=== PATIENT | female | born 1995 ===

== ENCOUNTER 2019-06-18 11:22 | Inpatient (IN) | payer OTHER ==
[~2019-06-18] VITALS: Ht 149 cm; Wt 57.9 kg
[2019-06-18] VITALS (8 sets, daily range): BP systolic 115–142; BP diastolic 74–97
--- NOTE | 2019-06-18 11:30 | NUR ---
Arrived to unit ambulates self accompanied by s.o. Here for monitoring and possible induction of labor. Wt obtained and to room 318. gowned and urine sample obtained. To bed and monitors on. pLan of care reviewed with pt and s.o. Language barrier noted, s.o. speaking and understanding some tristanian.
--- NOTE | 2019-06-18 12:00 | NUR ---
Language line obtained and discussing plan of care with pt and rn completing assessment.
[2019-06-18 12:46] LABS: HEMOGLOBIN 12.8 G/DL (11.5-16.0); MEAN PLATELET VOLUME 11.8 FL (7.4-10.4); RED CELL DISTRIBUTION WIDTH 20.3 % (10.0-14.5); WHITE BLOOD COUNT 7.3 10^3/uL (4.3-11.0)
[2019-06-18 12:51] LABS: ALBUMIN 3.1 GM/DL (3.2-4.5); CHLORIDE 105 MMOL/L (98-107); POTASSIUM 4.4 MMOL/L (3.6-5.0); SODIUM 134 MMOL/L (135-145)
[2019-06-18 12:52] LABS: CALCIUM 8.5 MG/DL (8.5-10.1)
[2019-06-18 12:53] LABS: GLUCOSE 88 MG/DL (70-105)
[2019-06-18 12:54] LABS: TOTAL PROTEIN 6.6 GM/DL (6.4-8.2)
[2019-06-18 12:55] LABS: CARBON DIOXIDE 18 MMOL/L (21-32)
[2019-06-18 12:56] LABS: BILIRUBIN,TOTAL 0.2 MG/DL (0.1-1.0)
[2019-06-18 12:57] LABS: ALKALINE PHOSPHATASE 296 U/L (40-136); CREATININE SERUM 0.63 MG/DL (0.60-1.30); GFR ESTIMATED > 60
[2019-06-18 12:58] LABS: BUN/CREATININE RATIO 16
[2019-06-18 13:00] LABS: ALANINE AMINOTRANSFERASE 23 U/L (0-55); URIC ACID 7.2 MG/DL (2.6-7.2)
--- NOTE | 2019-06-18 13:37 | NUR ---
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 will review plan of care with pt and s.o.
--- NOTE | 2019-06-18 14:02 | NUR ---
plan of care reviewed with pt and s.o. via language line. sandwich tray given to s.o. and pt to receive sandwich tray
[2019-06-18] MEDS ORDERED: CATHETER FLUSH 10 ML SYR IV PRN (16:45)
--- OUTSIDE RECORDS SUMMARY | 2019-06-18 17:10 | XMS REPORT | Continuity of Care Document ---
Author Organization Unknown Address Unknown Phone Unavailable Allergies There is no data. Medications There is no data. Problems There is no data. Procedures There is no data. Results Test Result Range TSH - 05/14/19 12:43 TSH 2.09 mIU/L NRG RUBELLA IMMUNE STATUS - 05/14/19 12:43 RUBELLA ANTIBODY (IGG) 8.33 index NRG CULTURE, URINE - 05/14/19 12:43 CULTURE, URINE, ROUTINE SEE NOTE NRG SUREPATH PAP RFX HPV mRNA E6/E7 - 12:47 CLINICAL INFORMATION: NRG LMP: NONE GIVEN NRG PREV. PAP: NONE GIVEN NRG PREV. BX: NONE GIVEN NRG SOURCE: Cervix NRG STATEMENT OF ADEQUACY: NRG INTERPRETATION/RESULT: NRG SECURITIES ADVISER: NRG GENERAL CATEGORIZATION: NRG COMMENT: NRG PATHOLOGIST: NRG COMMENT NRG Automated blood complete blood count (he mogram) panel - 06/18/19 11:00 Blood leukocytes automated count (number/volume) 7.3 10*3/uL 4.3-11.0 Blood erythrocytes automated count (number/volume) 4.49 10*6/uL 4.35-5.85 Venous blood hemoglobin measurement (mass/volume) 12.8 g/dL 11.5-16.0 Blood hematocrit (volume fraction) 39 % 35-52 Automated erythrocyte mean corpuscular volume 86 [ foz_us] 80-99 Automated erythrocyte mean corpuscular h emoglobin (mass per erythrocyte) 29 pg 25-34 Automated erythrocyte mean corpuscular h emoglobin concentration measurement (mass/volume) 33 g/dL 32-36 Automated erythrocyte distribution width ratio 20. 3 % 10.0- 14.5 Automated blood platelet count (count/volume) 223 10*3/uL 130-400 Automated blood platelet mean volume measurement 11.8 [foz_us] 7.4-10.4 Comprehensive metabolic panel - 06/18/19 11:00 Serum or plasma sodium measurement (moles/volume) 134 mmol/L 135-145 Serum or plasma potassium measurement (moles/volume) 4.4 mmol/L 3.6-5.0 Serum or plasma chloride measurement (moles/volume) 105 mmol/L 98-107 Carbon dioxide 18 mmol/L 21-32 Serum or plasma anion gap determination (moles/volume) 11 mmol/L 5-14 Serum or plasma urea nitrogen measurement (mass/volume ) 10 mg/dL 7-18 Serum or plasma creatinine measurement (mass/volume) 0.63 mg/dL 0.60-1.30 Serum or plasma urea nitrogen/creatinine mass ratio 16 NRG Serum or plasma creatinine measurement w ith calculation of estimated glomerular filtration rate > NRG Serum or plasma glucose measurement (mass/volume) 88 mg/dL 70-105 Serum or plasma calcium measurement (mass/volume) 8.5 mg/dL 8.5-10.1 Serum or plasma total bilirubin measurement (mass/volu me) 0.2 mg/dL 0.1-1.0 Serum or plasma alkaline phosphatase kari surement (enzymatic activity/volume) 296 U/L 40-136 Serum or plasma aspartate aminotransfera se measurement (enzymatic activity/volume) 31 U/L 5-34 Serum or plasma alanine aminotransferase measurement (enzymatic activity/volume) 23 U/L 0-55 Serum or plasma protein measurement (mass/volume) 6.6 g/dL 6.4-8.2 Serum or plasma albumin measurement (mass/volume) 3.1 g/dL 3.2-4.5 CALCIUM CORRECTED 9.2 mg/dL 8.5-10.1 Serum or plasma uric acid measurement (m ass/volume) - 06/18/19 11:00 Serum or plasma uric acid measurement (mass/volume) 7.2 mg/dL 2.6-7.2 Urine protein/creatinine mass ratio - 11:00 Urine protein measurement (mass/volume) 392 mg/dL 6-12 Urine creatinine measurement (mass/volume) 42 mg/d L 30-125 Urine protein/creatinine mass ratio 9.33 NRG Serum ragweed IgE antibody assay - 06/17 11:00 Serum ragweed IgE antibody assay 191 U/L 125-220 Encounters ACCT No. Visit Date/Time Discharge Status Pt. Type Provider Facility Loc./Unit Complaint [id number] 06/11/2019 10:10:00 06/11/2019 23:59: 59 [facility] Outpatient ASHLEY DAVIS, BREE Lee [facility], [place] [id number] 05/14/2019 10:20:00 Document Registration [id number] 06/18/2019 12:48:00 Document Registration
[2019-06-19] VITALS (48 sets, daily range): BP systolic 108–184; BP diastolic 72–102
[2019-06-19 05:38] LABS: BASOPHILS % (AUTO) 0 % (0-10); EOSINOPHILS # (AUTO) 0.1 10^3/uL (0.0-0.3); EOSINOPHILS % (AUTO) 2 % (0-10); HEMATOCRIT 38 % (35-52); HEMOGLOBIN 12.8 G/DL (11.5-16.0); LYMPHOCYTES # (AUTO) 2.8 X 10^3 (1.0-4.0); LYMPHOCYTES % (AUTO) 38 % (12-44); MEAN CORPUSCULAR HEMOGLOBIN 29 PG (25-34); MEAN CORPUSCULAR HGB CONC 33 G/DL (32-36); MEAN CORPUSCULAR VOLUME 87 FL (80-99); MONOCYTES # (AUTO) 0.7 X 10^3 (0.0-1.0); MONOCYTES % (AUTO) 9 % (0-12); NEUTROPHILS # (AUTO) 3.9 X 10^3 (1.8-7.8); NEUTROPHILS % (AUTO) 52 % (42-75); PLATELET COUNT 213 10^3/uL (130-400); RED CELL DISTRIBUTION WIDTH 20.4 % (10.0-14.5); WHITE BLOOD COUNT 7.6 10^3/uL (4.3-11.0)
[2019-06-19 05:50] LABS: ALBUMIN 2.8 GM/DL (3.2-4.5); CHLORIDE 105 MMOL/L (98-107); SODIUM 134 MMOL/L (135-145)
[2019-06-19 05:51] LABS: CALCIUM 7.9 MG/DL (8.5-10.1)
[2019-06-19 05:52] LABS: GLUCOSE 80 MG/DL (70-105); TOTAL PROTEIN 6.3 GM/DL (6.4-8.2)
[2019-06-19 05:53] LABS: CARBON DIOXIDE 18 MMOL/L (21-32)
[2019-06-19 06:05] LABS: ALANINE AMINOTRANSFERASE 20 U/L (0-55); ALKALINE PHOSPHATASE 272 U/L (40-136); BILIRUBIN,TOTAL 0.2 MG/DL (0.1-1.0); BUN/CREATININE RATIO 22; CREATININE SERUM 0.63 MG/DL (0.60-1.30); GFR ESTIMATED > 60
[2019-06-19 06:12] LABS: URIC ACID 7.8 MG/DL (2.6-7.2)
--- NOTE | 2019-06-19 08:20 | NUR ---
Sono tech to bedside for BPP.
--- NOTE | 2019-06-19 08:55 | NUR ---
Dr Baldwin called and reviewed lab results already seen by and tiffany report of 10/10 BPP along with recent bp's obtained. new orders for induction received. Will review plan of care with pt s.o.
[2019-06-19] MEDS ORDERED: D5 LR IV SOLUTION 1,000 ML IV SCH (08:58)
[2019-06-19] MEDS ORDERED: AMPICILLIN FOR IV USE 2,000 MG in WATER (STERILE) FOR INJECTION 14.8 ML IV SCH (08:58)
[2019-06-19] MEDS ORDERED: OXYTOCIN PRE-MIX DRIP 500 ML IV SCH ×2 (08:58→17:45)
[2019-06-19] MEDS ORDERED: CALCIUM GLUC. 10% 4.65 MEQ/10 ML VIAL IV PRN (09:00)
[2019-06-19] MEDS ORDERED: MAGNESIUM 4 GM/100 ML IVPB 100 ML IV ONE (09:00)
--- NOTE | 2019-06-19 09:12 | History & Physical-OB ---
OB - Chief Complaint & HPI Date/Time Date of Admission: Date of Admission: Jun 18, 2019 at 13:30 Date seen by a Provider: Jun 18, 2019 Time Seen by a Provider: 10:30 Chief Complaint/History OB-Reason for Admission/Chief: Obstetrical Complication Hx : 2 Hx Para: 1 Expected Date of Delivery: July 12, 2019 Gestational Age in Weeks: 36 Gestational Age in Days: 5 Indication for induction: medical complication (preeclampsia with severe features) History of Labs O+, antibody neg, RI. HIV/HepB/RPR NR. Chlamydia pos, treated 05/27. GC neg. 1 hour glucola neg. GBS pending. Allergies and Home Medications Allergies Coded Allergies: pork derived (porcine) (Verified Allergy, Unknown, 06/18/19) Patient Home Medication List Home Medication List Reviewed: Yes OB - History Hx of Present Care: Yes (late care, first visit at 31 weeks) Ultrasounds: Other (normal US findings, first US at 31 weeks) Obstetrical Complications: Pre-eclampsia Information Maternal Gestational Diabetes: No Hemorrhage: No Obstetrical History Hx : 2 Hx Para: 1 Hx # Term Pregnancies: 1 Hx # Pregnancies: 0 Number of Living Children: 1 Hx Termination: No Hx Multiple Gestation: No Hx Ectopic : No Hx Stillbirth: No Hx Complication: No Hx Induced Hypertens: No Hx Maternal Gestational Diabet: No Hx Hemorrhage: No Delivery History Hx Dystocia: No Hx Forceps Assisted Delivery: No Hx Vacuum Extraction Assisted: No Hx Placenta Abnormality: No Hx Distress: No Hx Large For Gestational Age I: No Hx Small for Gestational Age I: No Hx Section: No Hx Vaginal Delivery Post C-Sec: No Hx Blood Disorders: No Adverse Rxn to Tranfusion: No Patient Past Medical History PMHx: Denies PSurgHx: Denies Social History/Family History Alcohol Use: Denies Use Recreational Drug Use: No Smoking Cessation: Never smoker Immunizations Tetanus Booster (TDap): Less than 5yrs (05/14/2019) Rubella: immune RPR/VDRL: Negative GBS Status: Unknown HBsAG: Negative OB - Admission Exam Physical Exam Vitals: Vital Signs 06/18/19 06/18/19 06/19/19 06/19/19 16:30 19:20 06:30 07:00 Temp 36.7 Pulse 59 Resp 18 B/P (MAP) 133/78 (96) Pulse Ox 98 O2 Delivery Room Air HEENT: NCAT Abdomen: Gravid Extremities: Normal Reflexes: Hyperreflexia Present (mild per nursing) Cervical Dilatation: 4cm Effacement: 50% Station: -3 Membranes: Intact Contractions on Admission: >10 Minutes Apart Stone Scoring Tool (Modified) Dilation (cm): 3-4cm (2) Effacement (%): 51-79% (2) Descent/Station: -3 (0) Cervix Consistency: Soft (2) Cervix Position: Anterior (2) Add 1 point for: Each previous vaginal delivery (1) (1) Stone Score: 9 Labs Laboratory Tests Test 06/18/19 11:00 06/19/19 05:26 Range/Units White Blood Count 7.3 7.6 4.3-11.0 10^3/uL Red Blood Count 4.49 4.44 4.35-5.85 10^6/uL Hemoglobin 12.8 12.8 11.5-16.0 G/DL Hematocrit 39 38 35-52 % Mean Corpuscular Volume 86 87 80-99 FL Mean Corpuscular Hemoglobin 29 29 25-34 PG Mean Corpuscular Hemoglobin Concent 33 33 32-36 G/DL Red Cell Distribution Width 20.3 H 20.4 H 10.0-14.5 % Platelet Count 223 213 130-400 10^3/uL Mean Platelet Volume 11.8 H 12.0 H 7.4-10.4 FL Urine Protein 392 H 6-12 MG/DL Urine Creatinine 42 30-125 MG/DL Urine Protein/Creatinine Ratio 9.33 Sodium Level 134 L 134 L 135-145 MMOL/L Potassium Level 4.4 4.0 3.6-5.0 MMOL/L Chloride Level 105 105 98-107 MMOL/L Carbon Dioxide Level 18 L 18 L 21-32 MMOL/L Anion Gap 11 11 5-14 MMOL/L Blood Urea Nitrogen 10 14 7-18 MG/DL Creatinine 0.63 0.63 0.60-1.30 MG/DL Estimat Glomerular Filtration Rate > 60 > 60 BUN/Creatinine Ratio 16 22 Glucose Level 88 80 70-105 MG/DL Uric Acid 7.2 7.8 H 2.6-7.2 MG/DL Calcium Level 8.5 7.9 L 8.5-10.1 MG/DL Corrected Calcium 9.2 8.9 8.5-10.1 MG/DL Total Bilirubin 0.2 0.2 0.1-1.0 MG/DL Aspartate Amino Transf (AST/SGOT) 31 27 5-34 U/L Alanine Aminotransferase (ALT/SGPT) 23 20 0-55 U/L Alkaline Phosphatase 296 H 272 H 40-136 U/L Lactate Dehydrogenase 191 170 125-220 U/L Total Protein 6.6 6.3 L 6.4-8.2 GM/DL Albumin 3.1 L 2.8 L 3.2-4.5 GM/DL Neutrophils (%) (Auto) 52 42-75 % Lymphocytes (%) (Auto) 38 12-44 % Monocytes (%) (Auto) 9 0-12 % Eosinophils (%) (Auto) 2 0-10 % Basophils (%) (Auto) 0 0-10 % Neutrophils # (Auto) 3.9 1.8-7.8 X 10^3 Lymphocytes # (Auto) 2.8 1.0-4.0 X 10^3 Monocytes # (Auto) 0.7 0.0-1.0 X 10^3 Eosinophils # (Auto) 0.1 0.0-0.3 10^3/uL Basophils # (Auto) 0.0 0.0-0.1 10^3/uL OB - Assessment/Plan/Diagnosis Assessment Assessment: induction of labor, other (preeclampsia with severe features) Admission Dx Preeclampsia with severe features 36 weeks gestation GBS unknown Admission Status: Inpatient Order (span 2 midnights) Reason for Inpatient Admission: Induction, labor, delivery and course Plan Plan: Induction Induction Method: per Pitocin Protocol Other Plan Magnesium for preeclampsia with severe features (BP > 160, pr/cr over 9, remainder of labs including platelets okay with the exception of slightly elevated uric acid today) Labetalol as needed for BP > 160/110 Ampicillin for GBS unknown BREE RAMIREZ MD Jun 19, 2019 09:12
--- NOTE | 2019-06-19 09:13 | Diagnostic Imaging Report ---
EXAM: US BIOPHYSICAL PROFILE [id number] INDICATION: Preeclampsia. COMPARISON: None. FINDINGS: Limited obstetric ultrasound demonstrates a single intrauterine with a heart rate 127 BPM. Cephalic presentation. Posterior grade 2 placenta. XAVI 8.3 cm. Biophysical profile score equals 8. IMPRESSION: Biophysical profile score 8/8. Dictated by: Dictated on workstation # [id number]
[2019-06-19] MEDS ORDERED: PREN-142 PO (09:29)
[2019-06-19] MEDS: MAGNESIUM SULFATE DRIP 500 ML IV SCH ×2 (10:23→20:19)
[2019-06-19] MEDS ORDERED: AMPICILLIN FOR IV USE 1,000 MG in WATER (STERILE) FOR INJECTION 7.4 ML IV SCH (13:00)
--- NOTE | 2019-06-19 16:20 | NUR ---
blanka patino called dr garcia with updated pt report. sve , bloody show, pt hurting with US. Dr garcia coming for delivery.
--- NOTE | 2019-06-19 16:20 | NUR ---
Report to Melly Longoria RN
--- NOTE | 2019-06-19 16:29 | NUR ---
dr garcia called again, pt starting to push with GLENDY. Tanvir RN remaining at bedside. Clementina RN in nursery notified to come for delivery.
[2019-06-19] MEDS ORDERED: MISOPROSTOL 200 MCG (CYTOTEC) TABLET PR ONE (16:45)
--- NOTE | 2019-06-19 17:00 | NUR ---
1620: Dr Baldwin called to come for delivery, pt 7cm. Nursery notified as well. 1628: Dr Baldwin called again, pt pushing with UC, nursery RN notified to come for delivery. This RN remains at bedside with pt. 1631: Emergency light pulled for staff assist by this RN. Pt continues to push with melanie PIKE. Rossi, RN; Monie, RN; Clementina, RN at bedside with this RN. 1632: Head delivers, quickly following body. 36.5wk female bulb suctioned by this RN. dried with towels and place on mothers abdomen where Clementina RN continues to assess and stimulate . vigorous, good cry, tone, color. 1633: Cord clamped and cut by HOA Lomax. 1634: Pt has large gushes of blood with steady trickle. 1635: Intact placenta is delivered by this RN. Fundus firm, midline. Large gushes of blood continue. Pitocin is ran wide open. 1637: This RN continues to assess and rub fundus. bleeding slows. Dr Baldwin at bedside at this time. Dr Baldwin updated on situation. Pt setup for evaluation from Dr Baldwin. Lithotomy position using stirrups. 1641: 800mcg of cytotec admin rectally by Dr Baldwin. No lacerations noted by . 1645: Pericare done by this RN, pt linens changed, repositioned in bed. 1700: Recovery period begins at this time.
--- NOTE | 2019-06-19 17:01 | OB Labor & Delivery Record ---
Vag Delivery Note Vag Delivery Note Date of Delivery: 06/19/19 Preoperative Diagnosis: Elliot Yeung is a 24 /Para 2 / 1,Gestational Age (wks)36 with 5 days with preeclampsia with severe features Postoperative Diagnosis: Same Anesthesia: None Delivery Type: Precipitous Findings: Viable female , apgars 9/9, weight 4#14 Lacerations: none Intact placenta with 3 vessel cord. No nuchal cord, body cord or shoulder dystocia Cytotec 800 mcg placed for persistent bleeding Estimated Blood Loss: 400 ml Complications: None Condition: Stable Description of Procedure: The patient is a 24 year old female who presented with preeclampsia with severe features. She was admitted and informed consent was obtained. Her labor course was remarkable for rapid second stage. Nurse called me at 1624 to notify that patient was 7, I arrived at approximately 1636 and infant and placenta had already delivered precipitously prior to my arrival. The cord was doubly clamped and cut by nursing staff and the infant was handed off to the pediatric staff. ~ Vigorous fundal massage was performed and the fundus was found to be firm. IV oxytocin was given. When I arrived, nursing noted firm fundus but occasional gushes of blood persisting. Cytotec [address] aced rectally and bleeding stopped. Examination of the vagina and perineum revealed no laceration. Following the delivery, sponge, instrument and needle counts were correct. Mom and baby were both in stable condition in the labor suite. Vitals - Labs Vital Signs - I&O Vital Signs Date Time Temp Pulse Resp B/P (MAP) Pulse Ox O2 Delivery O2 Flow Rate FiO2 06/19/19 16:15 83 18 152/102 (119) 99 06/19/19 16:00 78 18 157/97 (117) 99 06/19/19 15:45 84 18 133/92 (106) 98 06/19/19 15:30 37.0 86 18 125/75 (92) 98 06/19/19 15:15 86 18 128/78 (95) 98 06/19/19 14:45 84 18 137/91 (106) 98 06/19/19 14:30 76 18 143/99 (114) 99 06/19/19 14:15 76 18 143/99 (114) 99 06/19/19 14:00 83 153/92 (112) 99 06/19/19 13:45 91 16 152/97 (115) 99 06/19/19 13:30 67 16 159/98 (118) 98 06/19/19 13:15 67 16 155/93 (113) 98 06/19/19 13:00 73 16 148/94 (112) 100 06/19/19 12:45 36.1 71 16 129/89 (102) 99 06/19/19 12:30 81 16 130/88 (102) 98 06/19/19 12:15 78 16 122/82 (95) 98 06/19/19 12:00 65 16 121/84 (96) 98 06/19/19 11:45 73 16 157/96 (116) 99 06/19/19 11:30 72 16 137/72 (93) 98 06/19/19 11:15 67 16 140/87 (104) 98 06/19/19 11:00 66 16 159/90 (113) 99 06/19/19 10:45 65 16 118/81 (93) 98 06/19/19 10:30 74 16 114/80 (91) 98 06/19/19 10:15 36.5 89 16 113/72 (86) 98 06/19/19 10:00 86 16 111/75 (87) 98 06/19/19 09:45 37.1 88 16 108/75 (86) 06/19/19 08:30 37.1 66 16 166/93 (117) 06/19/19 08:00 36.7 06/19/19 07:30 58 16 152/81 (104) 06/19/19 07:00 36.7 06/19/19 06:30 59 133/78 (96) 06/19/19 05:30 58 152/76 (101) 06/19/19 04:53 60 123/78 (93) 06/19/19 04:21 66 126/73 (90) 06/19/19 04:15 36.7 56 184/90 (121) 06/18/19 19:20 36.8 71 18 130/83 (99) 98 Labs Laboratory Tests 06/19/19 05:26: White Blood Count 7.6, Red Blood Count 4.44, Hemoglobin 12.8, Hematocrit 38, Mean Corpuscular Volume 87, Mean Corpuscular Hemoglobin 29, Mean Corpuscular Hemoglobin Concent 33, Red Cell Distribution Width 20.4H, Platelet Count 213, Mean Platelet Volume 12.0H, Neutrophils (%) (Auto) 52, Lymphocytes (%) (Auto) 38, Monocytes (%) (Auto) 9, Eosinophils (%) (Auto) 2, Basophils (%) (Auto) 0, Neutrophils # (Auto) 3.9, Lymphocytes # (Auto) 2.8, Monocytes # (Auto) 0.7, Eosinophils # (Auto) 0.1, Basophils # (Auto) 0.0, Sodium Level 134L, Potassium Level 4.0, Chloride Level 105, Carbon Dioxide Level 18L, Anion Gap 11, Blood Urea Nitrogen 14, Creatinine 0.63, Estimat Glomerular Filtration Rate > 60, BUN/Creatinine Ratio 22, Glucose Level 80, Uric Acid 7.8H, Calcium Level 7.9L, Corrected Calcium 8.9, Magnesium Level 1.9, Total Bilirubin 0.2, Aspartate Amino Transf (AST/SGOT) 27, Alanine Aminotransferase (ALT/SGPT) 20, Alkaline Phosphatase 272H, Lactate Dehydrogenase 170, Total Protein 6.3L, Albumin 2.8L BREE RAMIREZ MD Jun 19, 2019 17:01
[2019-06-19] MEDS ORDERED: MEASLES,MUMPS,RUBELLA 1 EA INJ SQ ONE (17:45)
[2019-06-19] MEDS ORDERED: WITCH HAZEL(TUCKS) 40 EA JAR TOP PRN (17:45)
[2019-06-19] MEDS ORDERED: BENZOCAINE/MENTHOL (DERMOPLAST) 60 ML CAN TP PRN (17:45)
[2019-06-19] MEDS ORDERED: ONDANSETRON 4 MG/2 ML (SDV) Z0FRAN ONE (17:56)
--- NOTE | 2019-06-19 19:05 | NUR ---
Pt report given to hodan
[2019-06-19] MEDS: DOCUSATE SODIUM 100 MG (COLACE) CAP PO SCH (19:50)
[2019-06-19] MEDS: ACETAMINOPHEN 500 MG TAB (TYLENOL) PO SCH (19:51)
[2019-06-19] MEDS ORDERED: MISOPROSTOL 200 MCG (CYTOTEC) TABLET PO ONE (20:06)
[2019-06-20] VITALS (9 sets, daily range): BP systolic 107–142; BP diastolic 68–95
[2019-06-20] MEDS: ACETAMINOPHEN 500 MG TAB (TYLENOL) PO SCH ×4 (02:21→23:48)
[2019-06-20 06:08] LABS: BASOPHILS % (AUTO) 0 % (0-10); EOSINOPHILS % (AUTO) 0 % (0-10); HEMATOCRIT 27 % (35-52); HEMOGLOBIN 9.1 G/DL (11.5-16.0); LYMPHOCYTES # (AUTO) 2.8 X 10^3 (1.0-4.0); LYMPHOCYTES % (AUTO) 22 % (12-44); MEAN CORPUSCULAR HEMOGLOBIN 29 PG (25-34); MEAN CORPUSCULAR HGB CONC 34 G/DL (32-36); MEAN CORPUSCULAR VOLUME 86 FL (80-99); MEAN PLATELET VOLUME 11.1 FL (7.4-10.4); MONOCYTES # (AUTO) 0.8 X 10^3 (0.0-1.0); MONOCYTES % (AUTO) 6 % (0-12); NEUTROPHILS # (AUTO) 9.3 X 10^3 (1.8-7.8); NEUTROPHILS % (AUTO) 72 % (42-75); PLATELET COUNT 188 10^3/uL (130-400); RED CELL DISTRIBUTION WIDTH 19.8 % (10.0-14.5); WHITE BLOOD COUNT 12.9 10^3/uL (4.3-11.0)
[2019-06-20] MEDS: PRENATAL VITAMIN 1 EA TAB PO SCH (10:06)
[2019-06-20] MEDS: FERROUS SULF 325 MG (IRON) TAB PO SCH (10:06)
[2019-06-20] MEDS: DOCUSATE SODIUM 100 MG (COLACE) CAP PO SCH ×2 (10:07→23:47)
--- NOTE | 2019-06-20 17:23 | Postpartum Progress Note ---
Note Note Day # 1 Subjective: Patient is without complaints. Voiding with rodriguez. Tolerating a regular diet without nausea or vomiting. Normal lochia. Pain is well controlled with oral pain medications. bottle/tube feeding. Infant in nursery Objective: Physical Exam: General - Alert and oriented, no apparent distress Abdomen - Soft, appropriately tender to palpation, non-distended, fundus firm at umbilicus Extremities - no edema, negative Darrius's bilaterally Assessment: 24 yo G2 now P2 post- day # 2, status post induced vaginal delivery for pre eclampsia with severe features Recovering well, hemodynamically stable Plan: Routine care. Pre eclampsia with severe features: Mag drip stopped this AM, blood pressure have been well controlled. D/c rodriguez today Encourage breast feeding. Encourage ambulation. Ferrous sulfate supplementation. Plan for discharge Sat/Sun and 6 week f.u with Tibbie Vitals - Labs Vital Signs - I&O Vital Signs Date Time Temp Pulse Resp B/P (MAP) Pulse Ox O2 Delivery O2 Flow Rate FiO2 06/20/19 14:00 36.5 62 18 133/88 (103) 99 Room Air 06/20/19 05:00 111/68 (82) 06/20/19 04:00 83 18 107/69 (82) 06/20/19 03:00 36.7 86 18 113/74 (87) 98 06/20/19 02:00 36.8 81 18 119/76 (90) 98 06/20/19 01:00 142/95 (111) 06/20/19 00:00 36.7 71 18 134/91 (105) 99 06/19/19 22:58 36.8 75 18 123/83 (96) 06/19/19 21:54 37.0 79 18 130/80 (97) 06/19/19 20:54 37.0 85 18 120/79 (93) 06/19/19 19:45 37.0 86 18 114/73 (87) 06/19/19 19:30 87 116/75 (89) 06/19/19 19:15 95 119/79 (92) 06/19/19 19:00 96 117/79 (92) 06/19/19 18:45 93 116/76 (89) 06/19/19 18:30 88 129/79 (96) 06/19/19 18:15 36.5 89 18 135/85 (102) 06/19/19 18:00 99 135/86 (102) 06/19/19 17:30 99 124/82 (96) I & O 06/20/19 07:00 Intake Total 2514.8 ml Output Total 2615 ml Balance -100.2 ml Labs Laboratory Tests 06/20/19 05:26: White Blood Count 12.9H, Red Blood Count 3.14L, Hemoglobin 9.1#L, Hematocrit 27L , Mean Corpuscular Volume 86, Mean Corpuscular Hemoglobin 29, Mean Corpuscular Hemoglobin Concent 34, Red Cell Distribution Width 19.8H, Platelet Count 188, Mean Platelet Volume 11.1H, Neutrophils (%) (Auto) 72, Lymphocytes (%) (Auto) 22 , Monocytes (%) (Auto) 6, Eosinophils (%) (Auto) 0, Basophils (%) (Auto) 0, Neutrophils # (Auto) 9.3H, Lymphocytes # (Auto) 2.8, Monocytes # (Auto) 0.8, Eosinophils # (Auto) 0.0, Basophils # (Auto) 0.0 EDUIN DUPONT MD Jun 20, 2019 17:23
[2019-06-21 06:10] VITALS: BP 120/67
[2019-06-21] MEDS: DOCUSATE SODIUM 100 MG (COLACE) CAP PO SCH ×2 (10:15→20:10)
[2019-06-21] MEDS: PRENATAL VITAMIN 1 EA TAB PO SCH (10:15)
[2019-06-21] MEDS: FERROUS SULF 325 MG (IRON) TAB PO SCH (10:15)
[2019-06-21 12:00] VITALS: BP 132/90
--- NOTE | 2019-06-21 17:17 | Postpartum Progress Note ---
Note Note Day # 2 Subjective: Patient is without complaints. Ambulating, voiding. Tolerating a regular diet without nausea or vomiting. Normal lochia. Pain is well controlled with oral pain medications. bottle feeding. Patient did have some elevated blood pressure overnight 140/90s. Denies any JOVEL or dizziness Objective: Physical Exam: General - Alert and oriented, no apparent distress CV- RRR, no murmurs Abdomen - Soft, appropriately tender to palpation, non-distended, fundus firm at umbilicus Extremities - no edema, negative Darrius's bilaterally Assessment: 24 yo post- day # G2 now P2 delivered 36 wga due to pre eclampsia with severe features, status post induced vaginal delivery. Recovering well, hemodynamically stable Plan: Routine care. Pre eclampsia: Continue to monitor blood pressures, patient has not had any treatable blood pressures post Encourage breast feeding but mother prefers bottle feeding Encourage ambulation. Ferrous sulfate supplementation. Plan for discharge tomorrow with infant and f/u with Dr Baldwin in 6 weeks Vitals - Labs Vital Signs - I&O Vital Signs Date Time Temp Pulse Resp B/P (MAP) Pulse Ox O2 Delivery O2 Flow Rate FiO2 06/21/19 12:00 37.0 86 18 132/90 (104) 98 Room Air 06/21/19 06:10 36.7 66 18 120/67 (84) 97 Room Air 06/20/19 23:34 36.9 62 18 141/80 (100) 97 Room Air 06/20/19 18:00 37.0 88 17 125/75 (92) 98 Room Air I & O 06/21/19 07:00 Intake Total 600 ml Balance 600 ml EDUIN DUPONT MD Jun 21, 2019 17:17
[2019-06-21] MEDS: ACETAMINOPHEN 500 MG TAB (TYLENOL) PO SCH (18:52)
[2019-06-21 20:15] VITALS: BP 133/83
[2019-06-21] MEDS: CATHETER FLUSH 10 ML SYR IV SCH (20:48)
--- NOTE | 2019-06-21 21:37 | NUR ---
MMR VACCINE NON-ADMINISTERED FROM [facility] DUE TO PT BEING RUBELLA IMMUNE.
[2019-06-22] MEDS: ACETAMINOPHEN 500 MG TAB (TYLENOL) PO SCH ×2 (00:20→05:22)
[2019-06-22 01:14] VITALS: BP 134/70
--- NOTE | 2019-06-22 09:26 | Discharge Summary ---
Diagnosis/Chief Complaint Date of Admission Jun 19, 2019 at 08:58 Date of Discharge 06/22/2019 Discharge Summary-Simple/Stand Discharge Physical Examination Allergies: Coded Allergies: pork derived (porcine) (Verified Allergy, Unknown, 06/18/19) Vitals & I&Os Vital Sign - Last 12Hours Date Time Temp Pulse Resp B/P (MAP) Pulse Ox O2 Delivery O2 Flow Rate FiO2 06/22/19 01:14 37.2 87 14 134/70 (91) 98 Room Air Hospital Course See final discharge diagnosis. Discharge Instructions to patient/family Please see electronic discharge instructions given to patient. Discharge Medications Reviewed and agree with Discharge Medication list on patient's Discharge I nstruction sheet Clinical Quality Measures DVT/VTE Risk/Contraindication: Risk Factor Score Per Nursin RFS Level Per Nursing on Admit: 1=Low/No VTE PPX EDUIN DUPONT MD Jun 22, 2019 09:26
[2019-06-22] MEDS ORDERED: IBUP-1773 PO (09:28)
[2019-06-22] MEDS ORDERED: FERR325T18 PO (09:28)
[2019-06-22 09:30] VITALS: BP 132/93
--- NOTE | 2019-06-22 09:30 | Discharge Summary ---
Discharge Inst-[facility] Reconcile Patient Problems Problems Reviewed?: Yes Depart Medications New, Converted or Re-Newed RX: Transmitted to Pharmacy New Medications: Ibuprofen (Ibuprofen) 600 Mg Tablet 600 MG PO Q8H PRN for PAIN-MILD, #90 TAB Ferrous Sulfate (Ferrous Sulfate) 325 Mg Tablet 325 MG PO DAILY@0800, #30 TAB Continued Medications: Vit No.124/Iron/FA ( Vitamin Tablet) 1 Each Tablet 1 EACH PO, TAB Follow Up/Instructions Goal/Follow Up: [address] Baldwin Activity Activity: Activity as Tolerated Driving Instructions: You May Drive NO SMOKING: NO SMOKING Nothing Inside Vagina: No Douching, No Killian, No Tampons Diet Discharge Diet: No Restrictions Symptoms to Report to : Swelling Increased, Bleeding Excessive, Heart Beat Irreg/Pounding, Pain/Pressure in Shoulder, Shortness of Breath For Any Problems or Questions: Contact Your Physician Copies To 1: BREE BALDWIN MD, HOLLY R MD Jun 22, 2019 09:30
--- NOTE | 2019-06-23 15:13 | Physician Query Clarification ---
PQ-Intro New Diagnosis Admission/Discharge Admission Date: Jun 19, 2019 at 08:58 Discharge Date: Jun 22, 2019 at 15:47 The medical record reflects the following clinical scenario: History/Risk Factors: Delivery Clinical Findings: Hgb 12.8 on admission, 9.1 on 06/19 Treatment: Ferrous sulfate Question: What condition best reflects the above clinical scenario? Please document a response in the Progress Noter or Discharge Summary. 1. Acute blood loss anemia, 2. Anemia complicating the puerperium 3. Other, with explanation of the clinical findings. 4. Clinically undetermined, no explanation for the clinical findings. PHYSICIAN RESPONSE What condition reflects above: 1 Please remember a lack of response to the above will prompt a phone page by CDI/Coding staff. In responding to this query, please exercise your independent professional judgment. The purpose of this communication is to more accurately reflect the complexity of your patients condition. The fact that a question is asked does not imply that any particular answer is desired or expected. Thank you for your timely response to this clarification. Requestors name: Alethea THIS PHYSICIAN QUERY FORM IS A PERMANENT PART OF THE MEDICAL RECORD ALETHEA BLANCAS Jun 23, 2019 15:13 EDUIN DUPONT MD Jun 30, 2019 19:25
== END 2019-06-22 15:47 | disposition home or self-care (01) | DRG 806 ==
LOC: WSo 11:22 → LDRP 11:22 → WSo 13:30 → LDRP 13:30 → OBSVTOIN 06-19 08:58 → LDRP 06-19 22:20
PROVIDERS: ADMIT Family Medicine; ATTEND Family Medicine
PROC: 10E0XZZ Delivery of Products of Conception, External Approach (ICD-10-PCS; principal; 2019-06-19)
PROC: 3E033VJ Introduction of Other Hormone into Peripheral Vein, Percutaneous Approach (ICD-10-PCS; 2019-06-19)
DX: O14.14 Severe pre-eclampsia complicating childbirth (principal); O72.1 Other immediate postpartum hemorrhage; O90.81 Anemia of the puerperium; D62 Acute posthemorrhagic anemia; O62.3 Precipitate labor; Z3A.36 36 weeks gestation of pregnancy; Z37.0 Single live birth
CPT/HCPCS: 36415; 76819; 80053; 82570; 83615; 83735; 84156; 84550; 85025; 85027; 88307; G0378